=== PATIENT | male | born 1990 | race Caucasian/White ===

== ENCOUNTER 2018-09-28 13:15 | Emergency (ER) | payer BC, OTHER ==
[2018-09-28 13:51] VITALS: BP 124/64; PULSE 69; TEMP 98.4; BMI 25.0
[2018-09-28] MEDS ORDERED: ONDANSETRON *ODT* 4 MG TABLET SL ONE (14:50)
--- NOTE | 2018-09-28 14:55 | PDOC ---
History of Present Illness - General Chief Complaint: Vomiting/Diarrhea Stated Complaint: COLD SYMPTOMS Time Seen by Provider: 09/28/18 14:33 History Source: Patient Exam Limitations: No Limitations Past History - Past Medical History Allergies/Adverse Reactions: Allergies Allergy/AdvReac Type Severity Reaction Status Date / Time No Known Allergies Allergy Verified 09/28/18 13:46 Home Medications: Ambulatory Orders Ondansetron [Zofran Odt -] 4 mg SL BID PRN #14 od.tablet 09/28/18 COPD: No - Surgical History Appendectomy: Yes - Suicide/Smoking/Psychosocial Hx Smoking History: Never smoked *Physical Exam - Vital Signs Last Vital Signs Temp Pulse Resp BP Pulse Ox 98.4 F 69 18 124/64 100 09/28/18 13:50 09/28/18 13:50 09/28/18 13:50 09/28/18 13:50 09/28/18 13:50 - Physical Exam General Appearance: No: Apparent Distress Respiratory/Chest: positive: Lungs Clear, Normal Breath Sounds. negative: Respiratory Distress Cardiovascular: positive: Regular Rhythm, Regular Rate, S1, S2. negative: Murmur Gastrointestinal/Abdominal: positive: Normal Bowel Sounds, Soft. negative: Tender, Distended, Guarding, Rebound Integumentary: positive: Normal Color Neurologic: positive: Alert, Normal Mood/Affect Moderate Sedation - Procedure Monitoring Vital Signs: Procedure Monitoring Vital Signs Temperature 98.4 F 09/28/18 13:50 Pulse Rate 69 09/28/18 13:50 Respiratory Rate 18 09/28/18 13:50 Blood Pressure 124/64 09/28/18 13:50 O2 Sat by Pulse Oximetry (%) 100 09/28/18 13:50 Medical Decision Making - Medical Decision Making 27 y/o M with no sig pmh presents with NBNB emesis since 1 AM along with watery diarrhea. Per patient, he had pizza and protein shake last night, but states other people had the same food and were not sick. Has some generalized abdominal discomfort from the vomiting. Denies fever, sob, cp, recent travel, use of meds Likely viral gastroenteritis Patient given SL zofran and passed PO challenge Stable for dc 09/28/18 16:18 *DC/Admit/Observation/Transfer Diagnosis at time of Disposition: Gastroenteritis - Discharge Dispostion Disposition: HOME Condition at time of disposition: Improved Decision to Admit order: No - Prescriptions Prescriptions: Ondansetron [Zofran Odt -] 4 mg SL BID PRN #14 od.tablet PRN Reason: Nausea - Referrals Referrals: Agusto Granado MD [Primary Care Provider] - 2 Days - Patient Instructions Printed Discharge Instructions: DI for Viral Gastroenteritis -- Adult Additional Instructions: Thank you for choosing [facility]. It was a pleasure taking care of you. Likely you have viral infection Take Zofran as needed for nausea Recommend light food such as bananas, applesauce, toast, rice, plain yogurt until feeling better Follow-up with your PCP in 2-3 days. Return to the Emergency Department if your symptoms worsen or persist or have other concerning symptoms. - Post Discharge Activity
[2018-09-28] MEDS ORDERED: ONDANSETRON *ODT* 4 MG TABLET ONE (15:05)
== END 2018-09-28 16:37 | disposition home or self-care (01) ==
LOC: JER 13:15
DX: K52.9 Noninfective gastroenteritis and colitis, unspecified (principal)
CPT/HCPCS: 99282-25; Q0162

== ENCOUNTER 2019-01-05 19:46 | Emergency (ER) | payer BC | END 2019-01-05 23:08 | disposition home or self-care (01) | LOC: JER 19:46 ==

== ENCOUNTER 2021-11-26 15:56 | Emergency (ER) | payer OTHER, BC ==
[2021-11-26 16:12] VITALS: BP 119/72; PULSE 65; TEMP 98.2; BMI 25.0
== END 2021-11-26 17:52 | disposition home or self-care (01) ==
LOC: JER 15:56 → JERFT 15:56
DX: S60.132A Contusion of left middle finger with damage to nail, initial encounter (principal); W22.8XXA Striking against or struck by other objects, initial encounter
CPT/HCPCS: 73130-TC-LT-FY; 99283-25

== ENCOUNTER 2022-01-02 12:20 | Emergency (ER) | payer OTHER, BC ==
[2022-01-02 12:32] VITALS: BP 114/65; PULSE 68; TEMP 98.8; BMI 25.0
[2022-01-02] MEDS ORDERED: FLUORESCEIN NA 1 EA STRIP OD ONE (13:37)
[2022-01-02] MEDS ORDERED: TETRACAINE 0.5% HCL 0.6ML DROPPER.BOTTLE OD ONE (13:37)
[2022-01-02] MEDS ORDERED: ERYTHROMYCIN 0.5% OPHTHALMIC OINTMENT 3.5 GM TUBE OD ONE (13:37)
[2022-01-02] MEDS ORDERED: DIPHTH,PERTUSS(ACELL),TET 0.5 ML DISP.SYRIN IM ONE ×2 (13:37→13:47)
[2022-01-02] MEDS ORDERED: ERYTHROMYCIN 0.5% OPHTHALMIC OINTMENT 3.5 GM TUBE ONE (13:48)
== END 2022-01-02 13:55 | disposition home or self-care (01) ==
LOC: JERFT 12:20
PROC: 3E0234Z Introduction of Serum, Toxoid and Vaccine into Muscle, Percutaneous Approach (ICD-10-PCS; principal; 2022-01-02)
DX: H53.141 Visual discomfort, right eye (principal)
CPT/HCPCS: 90715; 99284-25

== ENCOUNTER 2022-11-12 19:15 | Emergency (ER) | payer OTHER ==
[2022-11-12 19:28] VITALS: PULSE 78; BMI 25.8
[2022-11-12] MEDS ORDERED: ACETAMINOPHEN 500 MG TABLET (FP) PO ONE (20:56)
[2022-11-12] MEDS ORDERED: IBUPROFEN 600 MG TABLET (FP) PO ONE ×2 (20:56→21:08)
[2022-11-12] MEDS ORDERED: ACETAMINOPHEN 500 MG TABLET (FP) ONE (21:08)
[2022-11-13 01:30] VITALS: BP 124/79; RESP 17; TEMP 98.3
== END 2022-11-13 01:31 | disposition home or self-care (01) ==
LOC: JER 19:15
DX: S86.001A Unspecified injury of right Achilles tendon, initial encounter (principal); V86.41XA Person injured while boarding or alighting from ambulance or fire engine, initial encounter
CPT/HCPCS: 76882-TC-RT-FY; 99284-25

== ENCOUNTER 2022-11-22 09:59 | Day surgery (SDC) | payer OTHER ==
[2022-11-19 16:31] VITALS: BMI 26.6
[2022-11-22] MEDS ORDERED: PROPOFOL 60 ML ONE (13:23)
[2022-11-22] MEDS ORDERED: BUPIVACAINE HCL/PF 0.5% (5 MG/ML) 30 ML VIAL IJ ONE (13:24)
[2022-11-22] MEDS ORDERED: MIDAZOLAM HCL 2 MG/2 ML SINGLE DOSE VIAL ONE (13:24)
[2022-11-22] MEDS ORDERED: DEXAMETHASONE SOD PHOSPHATE/PF 10 MG/ML SDV ONE (13:24)
[2022-11-22] MEDS ORDERED: BUPIVACAINE HCL/PF 0.5% (5MG/ML) 10 ML VIAL ONE (13:25)
[2022-11-22] MEDS ORDERED: ceFAZolin SODIUM 1 GM VIAL ONE (14:05)
[2022-11-22] MEDS ORDERED: DEXAMETHASONE SOD PHOSPHATE 4 MG/1 ML VIAL ONE (14:16)
[2022-11-22] MEDS ORDERED: ONDANSETRON 4 MG/2 ML VIAL ONE (14:16)
[2022-11-22] MEDS ORDERED: PROPOFOL 20 ML ONE (14:30)
[2022-11-22] MEDS ORDERED: KETOROLAC TROMETHAMINE 30 MG/1 ML VIAL ONE (14:38)
[2022-11-22] MEDS ORDERED: oxyCODONE HCL 5 MG TABLET PO PRN (14:50)
[2022-11-22] MEDS ORDERED: ONDANSETRON 4 MG/2 ML VIAL IVPUSH PRN (14:50)
[2022-11-22] MEDS ORDERED: LACTATED RINGERS SOLUTION 1,000 ML IV SCH (15:00)
[2022-11-22 16:17] VITALS: RESP 18; TEMP 98.1
[2022-11-22 18:10] VITALS: BP 122/71; PULSE 75
== END 2022-11-22 18:12 | disposition home or self-care (01) ==
LOC: FASU 09:59
PROVIDERS: ATTEND Orthopaedic Surgery Sports Medicine
PROC: 0LQN0ZZ Repair Right Lower Leg Tendon, Open Approach (ICD-10-PCS; principal; 2022-11-22 14:05)
DX: S86.011A Strain of right Achilles tendon, initial encounter (principal); X58.XXXA Exposure to other specified factors, initial encounter; Y93.9 Activity, unspecified; Y92.9 Unspecified place or not applicable
CPT/HCPCS: 94760; C1713

== ENCOUNTER 2023-09-04 21:35 | Emergency (ER) | payer OTHER, BC ==
[2023-09-04 21:45] VITALS: BP 126/82; PULSE 94; RESP 20; TEMP 98.3; BMI 25.2
[2023-09-05] MEDS ORDERED: ACETAMINOPHEN 325 MG TABLET (FP) PO ONE (02:09)
[2023-09-05] MEDS ORDERED: ACETAMINOPHEN 325 MG TABLET (FP) ONE (02:16)
== END 2023-09-05 02:21 | disposition home or self-care (01) ==
LOC: JER 21:35
DX: M25.561 Pain in right knee (principal)
CPT/HCPCS: 73610-TC-RT-FY; 99283-25